=== PATIENT | female | born 1965 | race Native Hawaiian/Other Pacific Islander ===

== ENCOUNTER 2017-12-11 20:47 | Emergency (ER) | payer OTHER ==
[~2017-12-11] VITALS: Ht 160 cm; Wt 50.8 kg
--- NOTE | 2017-12-11 21:30 | NUR ---
[facility] FAMILY STATING "ANKLE SWOLLEN/PAINFUL X10 DAYS 05/28 PAIN", NAD NOTED, VSS, RESP EVEN AND UNLABORED, WAITING FOR MD KHAN
[2017-12-11] MEDS ORDERED: IBUPROFEN 600 MG TABLET PO ONE ×2 (22:00→22:06)
[2017-12-11 23:22] VITALS: BP 124/80
--- NOTE | 2017-12-11 23:23 | NUR ---
Patient discharged to home in stable condition. Written and verbal after care instructions given. Patient verbalizes understanding of instruction.
== END 2017-12-11 23:23 | disposition home or self-care (01) ==
LOC: ER 20:50
DX: M79.89 Other specified soft tissue disorders (principal); M79.605 Pain in left leg; I10 Essential (primary) hypertension; E11.9 Type 2 diabetes mellitus without complications; Z98.890 Other specified postprocedural states; Z88.2 Allergy status to sulfonamides; Z88.1 Allergy status to other antibiotic agents; Z88.5 Allergy status to narcotic agent; Z88.6 Allergy status to analgesic agent
CPT/HCPCS: 93971-TC; A4606; Z7610